=== PATIENT | male | born 1950 | race Caucasian/White ===

== ENCOUNTER 2021-11-26 01:07 | Day surgery (SDC) | payer MEDICARE, SELFPAY ==
[2021-11-12 14:44] VITALS: BMI 24.7
[2021-11-26 07:23] VITALS: BP 148/87; PULSE 85; RESP 16; TEMP 36.2; O2SAT 100
[2021-11-26] MEDS: LACTATED RINGERS 1,000 ML 150 ML IV CONT (07:36)
--- NOTE | 2021-11-26 07:51 | P.CONGI_ITS ---
Assessment and Plan Assessment and plan (1) FHx: colon cancer: Code(s): Z80.0 - Family history of malignant neoplasm of digestive organs Status: Acute Assessment and Plan: Patient's mother has had colon cancer. He himself has had colon polyps in 2017. Additionally there colon polyps on his father side of the family. Screening colonoscopy will be performed now and should be considered at 5 year intervals in the future. GI Consult Note Consult date/time: 11/26/21 07:51 HPI: Wm Sarabia is a 71 year old male Presents for screening colonoscopy. Patient's current weight appetite bowel movements are normal. He denies abdominal pain. Patient has had no bleeding. Patient has had a previous colonoscopy 2017 at [facility] that revealed a benign colon polyp. Family history is significant that his mother had colon cancer. Patient apparently has a history of colon polyps on his father side of the family as well. Patient presents today for neoplasia screening. Review of Systems Review of Systems: All systems reviewed & are unremarkable except as noted in HPI and below PMFSH Past Medical History Medical History (Updated 10/21/21 @ 10:28 by Coby Castillo CMA) Abnormal finding of blood chemistry, unspecified BMI 25.0-25.9,adult BMI 26.0-26.9,adult Elevated homocysteine Encounter for Medicare annual wellness exam Encounter for routine adult health examination without abnormal findings Encounter for special screening examination for neoplasm of prostate Exposure to COVID-19 virus FHx: colon cancer Hyperlipidemia Impacted cerumen of both ears On terminal manager drug therapy Personal history of COVID-19 Pre-diabetes Vitamin D deficiency Family History Family History Father Family history of cardiovascular disease Acute myocardial infarction Mother Carcinoma of colon Social History Social History Smoking status: Never smoker Alcohol intake: current Alcohol use details: rarely Substance use: never Substance use type: does not use Living arrangements: alone Spiritual care concerns: No Meds Home Medications and Allergies Home Medications Medication Instructions Recorded Confirmed Type omega-3 fatty acids 1,000 mg 2,000 mg PO BID #90 cap 12/26/19 11/12/21 Rx capsule cholecalciferol (vitamin D3) 50 50 mcg PO DAILY 04/10/21 11/12/21 History mcg (2,000 unit) capsule atorvastatin 40 mg tablet See Rx Instructions .ROUTE 09/05/21 11/12/21 Rx .COMPLEX #90 tablet Allergies Allergy/AdvReac Type Severity Reaction Status Date / Time No Known Allergies Allergy Verified 11/26/21 07:22 Vital Signs Vital Signs - 24 hr 11/26/21 07:23 Temperature 97.1 F L Pulse Rate 85 Respiratory Rate 16 Blood Pressure 148/87 H Pulse Oximetry 100 Exam Narrative: Physical exam reveals patient to be alert. Vital signs stable. HEENT exam is unremarkable. Patient is anicteric. Lungs are clear to auscultation and percussion. Heart is without murmur or extra sounds. Abdominal exam bowel sounds are present soft nontender with no organomegaly. Digital external rectal exam is normal.
--- NOTE | 2021-11-26 08:09 | P.PNAN_ITS ---
Anes - Initial Pre Proc Eval Procedure: Operation Date: 11/26/21 08:30 Proposed Procedures p Screening Colonoscopy - Ronni Castrejon MD Date/Time: 11/26/21 08:09 Surgeon: Ronni Castrejon MD Pre Op Diagnosis: family hx of colon ca Patient Data Age: 71 Gender: M Height: 1.83 m Weight: 80.5 kg Last Vital Signs Temp 97.1 F L 11/26/21 07:23 Pulse 85 11/26/21 07:23 Resp 16 11/26/21 07:23 BP 148/87 H 11/26/21 07:23 Pulse Ox 100 11/26/21 07:23 Allergies Allergy/AdvReac Type Severity Reaction Status Date / Time No Known Allergies Allergy Verified 11/26/21 07:22 Home Medications Medication Instructions Recorded Confirmed Type omega-3 fatty acids 1,000 mg 2,000 mg PO BID #90 cap 12/26/19 11/12/21 Rx capsule cholecalciferol (vitamin D3) 50 50 mcg PO DAILY 04/10/21 11/12/21 History mcg (2,000 unit) capsule atorvastatin 40 mg tablet See Rx Instructions .ROUTE 09/05/21 11/12/21 Rx .COMPLEX #90 tablet Patient hx anesthesia problems: none Family hx anesthesia problems: none Results Review: All pre-operative results and documents have been reviewed as part of the pre-operative evaluation. [facility] Past Medical History Medical History (Updated 10/21/21 @ 10:28 by Coby Castillo CMA) Abnormal finding of blood chemistry, unspecified BMI 25.0-25.9,adult BMI 26.0-26.9,adult Elevated homocysteine Encounter for Medicare annual wellness exam Encounter for routine adult health examination without abnormal findings Encounter for special screening examination for neoplasm of prostate Exposure to COVID-19 virus FHx: colon cancer Hyperlipidemia Impacted cerumen of both ears On mcc drug therapy Personal history of COVID-19 Pre-diabetes Vitamin D deficiency Family History Family History Father Family history of cardiovascular disease Acute myocardial infarction Mother Carcinoma of colon Social History Social History Smoking status: Never smoker Alcohol intake: current Alcohol use details: rarely Substance use: never Substance use type: does not use Living arrangements: alone Spiritual care concerns: No Anes - Eval Final PreProcedure Day of Procedure 11/26/21 08:09 Patient weight: normal Heart: regular rate and rhythm Lungs: clear to auscultation Airway: Mallampati scale class II Neurological: alert and oriented Last oral intake: >/= 8 hours ASA classification: II Emergent: no Anesthetic plan: proceed Anesthesia type and monitoring: general GIVS and standard monitoring Results Review: All pre-operative results and documents have been reviewed as part of the pre-operative evaluation. Informed Consent: The patient's anesthetic plan and its attendant risks and benefits were discussed with the patient/family/POA. Questions were solicited a nd answers provided to the satisfaction of the patient/family/POA.
[2021-11-26 08:34] VITALS: BP 120/80; PULSE 59; RESP 17; O2SAT 98
[2021-11-26 08:40] VITALS: BP 133/93; PULSE 67; RESP 22; O2SAT 98
[2021-11-26 08:55] VITALS: BP 126/83; PULSE 53; RESP 20; O2SAT 100
== END 2021-11-26 08:55 | disposition home or self-care (01) ==
PROVIDERS: PCP Internal Medicine; Visit Provider Internal Medicine Gastroenterology
PROC: 0DJD8ZZ Inspection of Lower Intestinal Tract, Via Natural or Artificial Opening Endoscopic (ICD-10-PCS; CPT 45378; principal; 2021-11-26 08:30)
DX: Z12.11 Encounter for screening for malignant neoplasm of colon (principal); K64.8 Other hemorrhoids; K57.30 Diverticulosis of large intestine without perforation or abscess without bleeding; Z80.0 Family history of malignant neoplasm of digestive organs; E78.5 Hyperlipidemia, unspecified; R73.03 Prediabetes; E55.9 Vitamin D deficiency, unspecified
CPT/HCPCS: G0105; J2704; J7120

== ENCOUNTER 2022-07-17 12:18 | Outpatient (CLI) | payer MEDICARE, SELFPAY ==
[2022-07-17 12:48] LABS: Influenza Control Positive
== END 2022-07-17 12:19 | disposition home or self-care (01) ==
LOC: ANHLAB 12:20
PROVIDERS: PCP Internal Medicine; Visit Provider Internal Medicine
DX: J02.9 Acute pharyngitis, unspecified (principal)
CPT/HCPCS: 87804

== ENCOUNTER 2024-11-01 11:47 | Outpatient (CLI) | payer MEDICARE, SELFPAY ==
--- NOTE | ~2024-11-01 | US_ITS ---
US retroperitoneal comp Ordering provider: Elijah Williamson MD History: . essential hypertension . Comparison: None. Technique: Ultrasound bilateral kidneys. Findings: RIGHT KIDNEY: Measures 10.8x 5.1x 4.1 cm in length which is normal in size. No renal cysts. No renal mass or visualized echogenic stones. Otherwise, normal echotexture and contour. No hydronephrosis. No rmal renal cortical thickness. LEFT KIDNEY: Measures 11.4x 5.9x 5.1 cm in length which is normal in size. No renal cysts. No renal m ass or visualized echogenic stones. Otherwise, normal echotexture and contour. No hydronephrosis. Nor mal renal cortical thickness. BLADDER: Normal. Ureteral jets were seen bilaterally. IMPRESSION: Normal study. Reviewed, dictated and finalized at location A. IMPRESSION: Normal study.
[2024-11-01 12:20] LABS: Add Urine Microscopic? NO; Appearance Urine Clear (Clear); Bilirubin Urine Negative (Negative); Blood Urine Negative (Negative); Color Urine Yellow (Yellow); Glucose Urine UA Negative (Negative); Ketones Urine Negative (Negative); Leukocyte Esterase Ur Negative LEU/UL (Negative); Nitrate Urine Negative (Negative); Protein Urine Negative (Negative); Specific Grav Ur 1.009 (1.001-1.035); Urobilinogen Urine 0.2 mg/dL (<2.0)
[2024-11-01 12:38] LABS: Alanine Aminotransferase 25 U/L (6-50); Albumin Level 4.5 g/dL (3.5-5.1); Alkaline Phosphatase 82 U/L (38-126); Anion Gap 8 mmol/L (4-12); Aspartate Amino Transferase 23 U/L (17-59); Bilirubin,Total 0.9 mg/dL (0.2-1.3); Blood Urea Nitrogen 16 mg/dL (9-20); Calcium 9.8 mg/dL (8.4-10.2); Carbon Dioxide 27 mmol/L (22-30); Chloride 105 mmol/L (98-107); Estimated Glomerular Filt Rate > 60; Glucose 111 mg/dL (65-110); Potassium 4.2 mmol/L (3.4-5.0); Sodium 140 mmol/L (137-145)
[2024-11-01 12:57] LABS: Free T4 Free Thyroxine 1.02 ng/dL (0.78-2.19)
== END 2024-11-01 11:48 | disposition home or self-care (01) ==
LOC: ANHIMG 11:52
PROVIDERS: PCP Internal Medicine; Visit Provider Internal Medicine
DX: I10 Essential (primary) hypertension (principal); E78.5 Hyperlipidemia, unspecified; R50.9 Fever, unspecified
CPT/HCPCS: 36415; 76770; 80053; 81003; 84439; 84443